=== PATIENT | male | born 1975 | race Caucasian/White ===

== ENCOUNTER 2020-07-13 16:04 | Emergency (ER) | payer OTHER, SELFPAY ==
[2020-07-13 18:04] VITALS: BP 144/89; PULSE 65; RESP 16; TEMP 37.1; O2SAT 98; BMI 36.6
--- NOTE | 2020-07-13 18:51 | ECG_ITS ---
Test Reason : HTN Blood Pressure : / mmHG Vent. Rate : 066 BPM Atrial Rate : 066 BPM P-R Int : 164 ms QRS Dur : 084 ms QT Int : 410 ms P-R-T Axes : 054 020 021 degrees QTc Int : 429 ms Normal sinus rhythm Normal ECG No significant changes seen Referred By: Chana Chan Electronically Signed By:TAHIRA REINOSO MD
--- NOTE | 2020-07-13 18:56 | ED.GENADULT ---
HPI - General Adult General Chief complaint: General Medical Stated complaint: High blood pressure Time Seen by Provider: 07/13/20 18:46 Source: patient Mode of arrival: ambulatory Limitations: no limitations History of Present Illness HPI narrative: Patient comes to emergency room complaining of hypertension. Patient states he has noticed that all week his diastolic pressure has been between 90 and 100, systolic around 140-150. Patient states occasionally he has headache, no chest pain or shortness of breath. Patient home called his primary care physician, he was instructed to come to the emergency room MD complaint: Hypertension Related Data Previous Rx's Medication Instructions Recorded hydrochlorothiazide 25 mg PO DAILY #20 tab 07/13/20 Allergies Allergy/AdvReac Type Severity Reaction Status Date / Time shellfish derived Allergy Unknown Verified 07/13/20 18:09 Review of Systems Review of Systems: Constitutional : No Weight loss, No Fever, No Chills, No Night Sweats, No Fatigue, No Malaise ENT/Mouth : No Hearing loss, No Ear Pain, No Nasal Congestion, No Sinus Pain, No Hoarseness, No sore throat, No Rhinorrhea, No Swallowing Difficulty Eyes: No Eye Pain, No Swelling, No Redness, No Foreign Body, No Discharge, No Vision Changes Cardiovascular : No Chest Pain, No SOB, No Dyspnea on Exertion, No Orthopnea, No Edema, No Palpitations Respiratory : No Cough, No Sputum, No Wheezing, No Smoke Exposure, No Dyspnea Gastrointestinal : No Nausea, No Vomiting, No Diarrhea, No Constipation, No abdominal Pain, No Hematochezia, No Melena Genitourinary : no irregular bleeding, No Dysuria, No Urinary Frequency, No Hematuria, No Urinary Incontinence, No Urgency, No Flank Pain, No Urinary Flow Changes, No Hesitancy Musculoskeletal : No joint pain, No Myalgias, No Joint Swelling Skin : No Skin Lesions, No rash Neuro : No Weakness, No Numbness, No Paresthesias, No Loss of Consciousness, No Dizziness, intermittent Headache, mild headache nearly gone at this time Psych : No Anxiety/Panic, No Depression, No SI/HI/AH/VH, No Social Issues, Heme/Lymph: No Bruising, No Bleeding,No Lymphadenopathy Endocrine : No Polyuria, No Polydipsia, No Temperature Intolerance PMFSH Social History Social History Advance Directives: No Advance Directives Information Provided: Yes Physical Exam Vital Signs: Vital Signs: Last Vital Signs Temp 98.7 F 07/13/20 18:04 Pulse 65 07/13/20 18:04 Resp 16 07/13/20 18:04 BP 144/89 H 07/13/20 18:04 Pulse Ox 98 07/13/20 18:04 Body Mass Index 36.6 Appearance: Alert. Oriented X3. No acute distress. Eyes: Pupils equal, round and reactive to light. ENT: Pharynx normal. Neck: Normal inspection. Neck supple. No lymph nodes noted. No crepitus CVS: Normal heart rate and rhythm. Pulses normal. Normal S1 and S2 Respiratory: No respiratory distress. Breath sounds normal. No Wheezing. No rales Abdomen: Soft and nontender. No rigidity. No distention. good BS x4 Skin: Skin warm and dry. Normal skin color. Normal skin turgor. Extremities: No lower extremity edema. No lower extremity edema. No Lacerations. No Rash Neuro: Oriented X 3. No motor deficit. No sensory deficit. Moving all extermities. No slurred speech. Course Course Course Narrative: Patient is resistant to start taking blood pressure medications, I discussed with the patient that he has had several high blood pressure readings at home, at least 5 readings with high blood pressure. Discussed with the patient to start hydrochlorothiazide, patient agrees with plan, patient will follow-up with his primary care physician on Thursday. Medical Decision Making ECG Data Attestation: I personally reviewed and interpreted this ECG as follows: (Heart rate 66, normal sinus rhythm, QTC 429, no ST segment depressions or elevations, no T-wave inversions) Discharge Plan Discharge Clinical Impression: Hypertension Qualifiers: Hypertension type: essential hypertension Qualified Code(s): I10 - Essential (primary) hypertension Patient Disposition: Home, Self-Care Instructions: Heart Healthy Diet (ED), Hypertension (ED) Prescriptions: New hydrochlorothiazide 25 mg tablet 25 mg PO DAILY Qty: 20 RF: 0
[2020-07-13 20:00] VITALS: BP 145/92; PULSE 70; RESP 17; O2SAT 98
[2020-07-13] MEDS: Acetaminophen 325 MG TABLET 650 MG PO (20:03)
== END 2020-07-13 20:18 | disposition home or self-care (01) ==
PROVIDERS: Emergency Provider Emergency Medicine; PCP Internal Medicine
DX: I10 Essential (primary) hypertension (principal); Z79.899 Other long term (current) drug therapy
CPT/HCPCS: 93005; 99283; 99284

== ENCOUNTER 2020-10-02 22:50 | Emergency (ER) | payer OTHER, SELFPAY ==
--- NOTE | 2020-10-02 | XR_ITS ---
EXAMINATION: LEFT HAND 3 VIEWS CLINICAL INFORMATION: Left hand swelling. COMPARISON: None. TECHNIQUE: PA, lateral, oblique views of the left hand were obtained. FINDINGS: There is an oblique fracture through the midshaft left fourth metacarpal. There is associated soft tissue swelling. XR/XR hand wrist LT IMPRESSION: Left fourth metacarpal fracture with associated soft tissue swelling.
[2020-10-02 23:09] VITALS: PULSE 98; RESP 20; TEMP 38.2; O2SAT 95; BMI 35.2
--- NOTE | 2020-10-02 23:20 | XR_ITS ---
EXAMINATION: XR CHEST CLINICAL INFORMATION: History of asthma. COMPARISON: Chest x-ray 01/18/2019 TECHNIQUE: Frontal view of the chest was obtained. Portable 2338 hours FINDINGS: No significant abnormality is noted involving the heart, lungs, mediastinum, bony thorax or soft tissues. XR/XR chest 1V IMPRESSION: Unremarkable examination.
--- NOTE | 2020-10-02 23:33 | ED_ITS ---
HPI - General Adult General Chief complaint: General Medical Stated complaint: FLU LIKE AND LAC Time Seen by Provider: 10/02/20 23:20 Source: patient Mode of arrival: ambulatory Limitations: no limitations History of Present Illness HPI narrative: 44 y/o male with history of asthma, HTN who is presenting with fevers, headache, and wheezing that started yesterday. He has been having to use his inhaler for wheezing; it has been working. He also complains on left hand pain after he fell down 3 stairs earlier today after tripping while he was running down the stairs to check on his who was yelling at someone outside. The pain is located over mid-lateral aspect of his hand, below the ring and pinky fingers. He is right hand dominant. No other injuries noted. He denies chest pain, nausea, vomiting, abdominal pain, myalgias. No known COVID exposure. He is not up to date on his influeza vaccine. He states he gets an asthma flare about two times per year at the same time each year. MD complaint: hand pain and flu-like symptoms Onset (ago): day(s) (2) Location: chest and left Radiation: non-radiation Severity: moderate Quality: aching Pain Consistency: intermittent Relieving factors: immobilization Exacerbating factors: movement Associated symptoms: fever/chills, headaches, loss of appetite, malaise and shortness of breath Treatments prior to arrival: none Related Data Previous Rx's Medication Instructions Recorded hydrochlorothiazide 25 mg PO DAILY #20 tab 07/13/20 azithromycin [Zithromax Z-Gavino] See Rx Instructions .ROUTE 10/02/20 .COMPLEX #6 tab prednisone 40 mg PO DAILY #10 tab 10/02/20 Allergies Allergy/AdvReac Type Severity Reaction Status Date / Time shellfish derived Allergy Unknown Verified 07/13/20 18:09 Review of Systems Review of Systems: Constitutional: + Fever, No Chills ENT/Mouth: No sore throat, No Rhinorrhea, No Swallowing Difficulty Eyes: No Eye Pain, No Swelling, No Redness Cardiovascular: No Chest Pain, + SOB, No Orthopnea, No Edema Respiratory: No Cough, No Sputum, + Wheezing, No dyspnea Gastrointestinal: No Nausea, No Vomiting, No Diarrhea, No abdominal Pain, No Hematochezia, No Melena Genitourinary: No Dysuria, No Urinary Frequency, No Hematuria Musculoskeletal: + joint pain, No Myalgias Skin: No Skin Lesions, No rash Neuro: No Weakness, No Numbness, No Dizziness, +Headache Psych: No Anxiety/Panic, No Depression Heme/Lymph: No Bruising PMFSH Past Medical History Attestation statement: The following information was validated with the patient. Social History Social History Alcohol intake: never Advance Directives: No Physical Exam Vital Signs: Vital Signs: Last Vital Signs Temp 100.7 F H 10/02/20 23:09 Pulse 97 10/03/20 01:08 Resp 20 10/03/20 01:08 BP 140/91 H 10/03/20 01:08 Pulse Ox 98 10/03/20 01:08 Body Mass Index 35.2 Appearance: Alert. Oriented X3. No acute distress. Eyes: Pupils equal, round and reactive to light. Bilateral scleral injection ENT: Pharynx normal. Neck: Normal inspection. Neck supple. CVS: Normal heart rate and rhythm. Pulses normal. Respiratory: No respiratory distress. Breath sounds normal. Forced end- expiratory wheeze of upper airway, resolves when breathing through the nares. Abdomen: Soft and nontender. +BS x4 Skin: Skin warm and dry. Normal skin color. Normal skin turgor. No rashes. Extremities: left hand with soft tissue swelling aovre 4th/5ht metacarpal, normal ROM of fingers and wrist. NV intact distally with <3 sec cap refill. tenderness over mid - 4th and 5th metacarpal Neuro: Oriented X 3. No motor deficit. No sensory deficit. Course Course Course Narrative: 44 y/o male with history of asthma and HTN presenting with flu-like symptoms as well as left hand pain after a mechanical fall. Temp on arrival 100.7 with normal HR, BP and SpO2. Lungs are clear on arrival. Will get CXR, test for COVID/Flu/RSV and get XR hand to assess for fracture. Reevaluation(s) Reevaluation #1: COVID-19 positive. CXR unremarkable. Ambulatory SpO2 98%. XR hand showing 4th metacarpal fracture. Will place in splint and have him follow up with Ortho/Hand. Patient has been counseled and results reviewed. Stable for discharge. Medical Decision Making Lab Data Labs: Lab Results 10/03/20 Range/Units 00:46 Coronavirus (PCR) POSITIVE A (Negative) Influenza Type A (PCR) NEGATIVE (Negative) Influenza Type B (PCR) NEGATIVE (Negative) RSV RNA Qual (PCR) NEGATIVE (Negative) Critical Care Time Critical Care Time Critical Care Time: No Discharge Plan Discharge Clinical Impression: COVID-19 Fracture, metacarpal Qualifiers: Encounter type: initial encounter Metacarpal bone: fourth Fracture type: closed Metacarpal location: shaft Fracture alignment: nondisplaced Laterality: left Qualified Code(s): S62.355A - Nondisplaced fracture of shaft of fourth metacarpal bone, left hand, initial encounter for closed fracture Patient Disposition: Home, Self-Care Instructions: Asthma (ED), Hand Fracture (ED), COVID-19 (Coronavirus Disease 2019) (ED) Additional Instructions: You were found to be COVID-19 POSITIVE today. Your chest x-ray and oxygen levels were normal. Rest. Drink plenty of fluids. Do not go out in public for the next 14 days. Take over the counter cold/flu medications as needed for your symptoms. Take Tylenol and/or Motrin as needed for fevers and body aches. Follow up with your doctor this week. If you shortness of breath worsens , if you develop difficulty breathing or any other concerning symptom come back to the ER for further evaluation. Take the prescribed medications as directed for your asthma. Continue to use your inhaler as needed for wheezing and shortness of breath. Your hand x-ray showed a fracture of a bone in your hand. Wear the splint that was applied until you follow up with Orthopedic Hand Specialist. Elevate your hand when possible. Take Motrin and/or Tylenol as needed for pain. Prescriptions: New azithromycin [Zithromax Z-Gavino] 250 mg tablet See Rx Instructions .ROUTE .COMPLEX Qty: 6 RF: 0 prednisone 20 mg tablet 40 mg PO DAILY Qty: 10 RF: 0 No Action hydrochlorothiazide 25 mg tablet 25 mg PO DAILY Qty: 20 RF: 0 Referrals: Vivian Cherry MD [Physician] - 3 days (4th metacarpal fracture. )
[2020-10-03] MEDS: Acetaminophen 325 MG TABLET 975 MG PO (01:07)
[2020-10-03 01:08] VITALS: BP 140/91; PULSE 97; RESP 20; O2SAT 98
[2020-10-03 01:30] LABS: Influenza A PCR NEGATIVE (Negative); Influenza B PCR NEGATIVE (Negative); Resp Syncy Virus RNA Qual PCR NEGATIVE (Negative)
[2020-10-03 01:33] LABS: SARS COV2 PCR INHOUSE POSITIVE (Negative)
--- NOTE | 2020-10-03 02:03 | PC.NURSE ---
THIS PCT APPLIED A VOLAR SPLINT TO THE LT ARM PER MD . PT TOLERATED PROCEDURE WELL. ASSESSED SPLINT AFTER APPLICATION.
== END 2020-10-03 02:13 | disposition home or self-care (01) ==
PROVIDERS: Physician Assistant; Emergency Provider Student in an Organized Health Care Education/Training Program
DX: U07.1 COVID-19 (principal); S62.355A Nondisplaced fracture of shaft of fourth metacarpal bone, left hand, initial encounter for closed fracture; W10.8XXA Fall (on) (from) other stairs and steps, initial encounter; J45.909 Unspecified asthma, uncomplicated; I10 Essential (primary) hypertension; Y93.89 Activity, other specified; Y92.018 Other place in single-family (private) house as the place of occurrence of the external cause; Y99.9 Unspecified external cause status; Z79.899 Other long term (current) drug therapy
CPT/HCPCS: 0241U; 29125; 36415; 71045; 73110; 73130; 99284

== ENCOUNTER 2020-10-31 13:02 | Outpatient (REF) | payer OTHER, SELFPAY ==
--- NOTE | ~2020-10-31 | XR_ITS ---
EXAMINATION: XR HAND, LEFT CLINICAL INFORMATION: Fracture COMPARISON: Previous x-ray October 2020 TECHNIQUE: PA, lateral, and oblique views of the left hand. FINDINGS: There is an oblique displaced fracture of the shaft of the fourth metacarpal bone. Alignment is unchanged. There is increasing bony callus formation distally suggestive of some evidence of healing. No other fracture is seen. Joint spaces are normal. Soft tissues are normal. XR/XR hand LT min 3V IMPRESSION: Healing fracture of the fourth metacarpal bone
== END 2020-10-31 13:03 | disposition home or self-care (01) ==
LOC: HO.XRAY 13:02
PROVIDERS: Visit Provider Physician Assistant
DX: S62.325A Displaced fracture of shaft of fourth metacarpal bone, left hand, initial encounter for closed fracture (principal)
CPT/HCPCS: 73130; 99202

== ENCOUNTER 2021-11-19 13:09 | Outpatient (REF) | payer OTHER, SELFPAY ==
--- NOTE | ~2021-11-19 | XR_ITS ---
EXAMINATION: XR TIBIA AND FIBULA, RIGHT CLINICAL INFORMATION: Localized swelling. Mass. Lump left lower limb. Patient fell a pop while walking. History of ORIF tibia. COMPARISON: None TECHNIQUE: AP and lateral views of the right tibia and fibula were obtained. FINDINGS: Intramedullary cesilia present in the tibia which is intact. There is a locking screw in the proximal tibia but not in the distal tibia. Hardware is intact. No radiographic evidence of loosening. Healed fracture with residual deformity of the proximal shaft of the tibia. No acute abnormality. No focal bone lesion or bone destruction. No abnormal periosteal reaction. Knee joint and ankle joint are unremarkable. XR/XR tibia fibula RT 2V IMPRESSION: No acute abnormality. Status post internal fixation with intramedullary cesilia right tibia. Old healed fracture of the proximal shaft of tibia.
== END 2021-11-19 13:10 | disposition home or self-care (01) ==
LOC: HO.XRAY 13:09
PROVIDERS: Absent Provider Internal Medicine; PCP Internal Medicine; Visit Provider Emergency Medicine
DX: R22.42 Localized swelling, mass and lump, left lower limb (principal)
CPT/HCPCS: 73590

== ENCOUNTER 2022-03-31 11:27 | Emergency (ER) | payer OTHER, SELFPAY ==
--- NOTE | ~2022-03-31 | XR_ITS ---
EXAMINATION: XR CHEST CLINICAL INFORMATION: 46-year-old male with cough and fever COMPARISON: 11/18/2018 TECHNIQUE: 2 views of the chest were obtained. FINDINGS: There is normal lung volume. Cardiomediastinal silhouette is normal. Lungs are clear without infiltrates nodules or pleural effusion. Osseous structures unremarkable. XR/XR chest 2V IMPRESSION: No acute abnormalities
--- NOTE | 2022-03-31 11:37 | ECG_ITS ---
Test Reason : CP Blood Pressure : / mmHG Vent. Rate : 072 BPM Atrial Rate : 072 BPM P-R Int : 154 ms QRS Dur : 086 ms QT Int : 386 ms P-R-T Axes : 052 018 024 degrees QTc Int : 422 ms Normal sinus rhythm Normal ECG When compared with ECG of 13-JUL-2020 19:16, No significant change was found Referred By: Generic ED Physician Electronically Signed By:BERNIE MONROE MD
[2022-03-31 11:50] VITALS: BP 129/92; PULSE 81; RESP 18; TEMP 36.6; O2SAT 98; BMI 36.3
[2022-03-31 12:05] LABS: Basophils Percent Auto 0.7 % (0-2); Eosinophils Absolute Auto 0.4 X10*3/uL (0.0-0.4); Eosinophils Percent Auto 6.3 % (0-4); Hematocrit 44.3 % (42.0-52.0); Hemoglobin 15.1 g/dl (14.0-18.0); Imm Gran Abs Auto 0.01 X10*3/uL (0.00-0.03); Imm Gran Pct Auto 0.2 % (0.0-0.4); Lymphocytes Absolute Auto 1.9 X10*3/uL (1.2-4.9); Lymphocytes Percent Auto 33.7 % (20-40); MANUAL DIFF FLAG NO; Mean Corpuscular HGB Conc 34.1 g/dl (31.0-36.0); Mean Corpuscular Hemoglobin 29.4 pg (27.0-33.0); Mean Corpuscular Volume 86.4 fL (80.0-98.0); Mean Platelet Volume 10.1 fL (9.4-12.4); Monocytes Absolute Auto 0.6 X10*3/uL (0.1-1.2); Monocytes Percent Auto 10.3 % (2-11); Neutrophils Absolute Auto 2.7 x10*3/uL (2.0-8.3); Neutrophils Percent Auto 48.8 % (45-73); Platelet Count 216 X10*3/uL (160-400); Red Blood Count 5.13 X10*6/uL (4.60-5.80); Red Cell Distribution Width 12.4 % (11.0-16.0); White Blood Count 5.5 X10*3/uL (4.8-10.8)
[2022-03-31 12:20] LABS: Anion Gap 13 (12-20); Blood Urea Nitrogen 20 mg/dL (9-16); Calcium 9.4 mg/dL (8.4-10.2); Carbon Dioxide 26 mmol/L (22-29); Chloride 103 mmol/L (96-108); Creatinine Clr Calc Pharmacy 117.3; Estimated Glomerular Filt Rate > 60; Glucose Random 99 mg/dL (60-115); Potassium 4.1 mmol/L (3.3-5.1); Sodium 138 mmol/L (135-145)
[2022-03-31 12:25] LABS: Troponin-I High Sensitivity < 3.5 ng/L (<3.5-35.0)
--- NOTE | 2022-03-31 13:47 | ED_ITS ---
HPI - Chest Pain General Chief Complaint: Chest Pain Stated Complaint: chest pain, sob Time Seen by Provider: 03/31/22 13:47 Source: patient Mode of arrival: ambulatory Limitations: no limitations History of Present Illness HPI narrative: 46-year-old male with a history of mild intermittent asthma, hypertension who presents to the ER for evaluation of left-sided chest soreness that started this morning when he was at work. he reports the pain started around 07:00, with last 20 minutes and go away. 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 He denies any heavy lifting or strenuous activity. He reports he thought he had a little bit of an asthma flare this morning but that seemed to have gone away. He currently has no chest pain. When he did have a he describes it as some soreness in his upper left chest, nonradiating. He denied any shortness of breath, nausea, diaphoresis. He had similar soreness last week. He also reports history of similar episode fiber 6 years ago that required an overnight admission at [facility]. He denies any history of a cardiac catheterization. MD complaint: chest discomfort Pertinent past history: asthma Onset (ago): hour(s) (8) Timing of current episode: episodic and now resolved Prior episodes: Yes Onset: during rest Pain location: left chest Pain radiation: none Severity: mild Quality: aching and other (soreness) Relieving factors: nothing Exacerbating factors: nothing Associated symptoms: other ( wheezing) Treatment prior to arrival: none Risk Factors Coronary artery disease risk factors: hypertension Thoracic aortic dissection risk factors: none Related Data Home Medications Medication Instructions Recorded Confirmed albuterol sulfate 90 mcg/actuation 2 puff PO Q4-6H PRN 10/31/20 aerosol inhaler amlodipine 5 mg tablet 5 mg PO DAILY 10/31/20 Previous Rx's Medication Instructions Recorded hydrochlorothiazide 25 mg tablet 25 mg PO DAILY #20 tabs 07/13/20 azithromycin 250 mg tablet See Rx Instructions PO .COMPLEX #6 10/02/20 (Zithromax Z-Gavino) tabs prednisone 20 mg tablet 40 mg PO DAILY #10 tabs 10/02/20 Allergies Allergy/AdvReac Type Severity Reaction Status Date / Time shellfish derived Allergy Unknown Verified 10/31/20 13:13 Review of Systems Review of Systems: Constitutional: No Fever, No Chills ENT/Mouth: No sore throat, No Rhinorrhea, No Swallowing Difficulty Cardiovascular: + Chest Pain, No SOB, No Orthopnea, No Edema Respiratory: No Cough, No Sputum, + Wheezing, No dyspnea Gastrointestinal: No Nausea, No Vomiting, No Diarrhea, No abdominal Pain Genitourinary: No Dysuria, No Urinary Frequency, No Hematuria Musculoskeletal: No joint pain, No Myalgias Skin: No Skin Lesions, No rash Neuro: No Weakness, No Numbness, No Dizziness, No Headache Psych: No Anxiety/Panic, No Depression Heme/Lymph: No Bruising, No Lymphadenopathy COUNT INCLUDES THE [facility] Past Medical History Medical History (Updated 03/31/22 @ 15:11 by TONI Delaney) Asthma Hypertension Social History Social History (Updated 10/31/20 @ 13:33 by Judi Hunt [facility]) Alcohol intake: never Advance Directives: No Advance Directives Information Provided: No Current occupational status: employed 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 Oriented X3. No acute distress. Eyes: Pupils equal, round and reactive to light. ENT: Pharynx normal. Neck: Normal inspection. Neck supple. CVS: Normal heart rate and rhythm. Pulses normal. nontender chest wall. Respiratory: No respiratory distress. Breath sounds normal. Abdomen: Soft and nontender. +BS x4 Skin: Skin warm and dry. Normal skin color. Normal skin turgor. No rashes. Extremities: No lower extremity swelling or edema. No calf tenderness Neuro: Oriented X 3. No motor deficit. No sensory deficit. Course Course Course Narrative: 46-year-old male with history of hypertension and mild intermittent asthma presents to the ER for evaluation of intermittent left chest shortness that was occurring while he was at work today. Has since resolved. clinical presentation is not consistent with typical ACS. EKG is reassuring. Will check his troponin x2, chest x-ray, COVID swab. His lungs are clear, no evidence of asthma exacerbation failure will monitor closely. Reevaluation(s) Reevaluation #1: Troponin is negative x2. His chest x-ray is clear. He is negative for COVID. His lab work is unremarkable. He is pain-free. At this time comfortable with discharge home with outpatient follow-up. MDM - Chest Pain Medical Records Data Attestation: I reviewed the patient's medical records. Lab Data Attestation: I reviewed the patient's lab results. Result diagrams: 03/31/22 12:00 03/31/22 12:00 Labs: Lab Results 03/31/22 03/31/22 03/31/22 Range/Units 12:00 12:00 12:00 WBC 5.5 (4.8-10.8) X10*3/uL RBC 5.13 (4.60-5.80) X10*6/uL Hgb 15.1 (14.0-18.0) g/dl Hct 44.3 (42.0-52.0) % MCV 86.4 (80.0-98.0) fL MCH 29.4 (27.0-33.0) pg MCHC 34.1 (31.0-36.0) g/dl RDW 12.4 (11.0-16.0) % Plt Count 216 (160-400) X10*3/uL MPV 10.1 (9.4-12.4) fL Immature Gran % (Auto) 0.2 (0.0-0.4) % Neut % (Auto) 48.8 (45-73) % Lymph % (Auto) 33.7 (20-40) % Holt % (Auto) 10.3 (2-11) % Eos % (Auto) 6.3 H (0-4) % Baso % (Auto) 0.7 (0-2) % Lymph # (Auto) 1.9 (1.2-4.9) X10*3/uL Holt # (Auto) 0.6 (0.1-1.2) X10*3/uL Eos # (Auto) 0.4 (0.0-0.4) X10*3/uL Baso # (Auto) 0.0 (0.0-0.2) X10*3/uL Abs Immat Gran (auto) 0.01 (0.00-0.03) X10*3/uL Absolute Neuts (auto) 2.7 (2.0-8.3) x10*3/uL Absolute Nucleated RBC 0.000 (0.0-0.012) X10*3/uL Nucleated RBC % (auto) 0.0 (0.0-0.2) /100WBC Sodium 138 (135-145) mmol/L Potassium 4.1 (3.3-5.1) mmol/L Chloride 103 (96-108) mmol/L Carbon Dioxide 26 (22-29) mmol/L Anion Gap 13 (12-20) BUN 20 H (9-16) mg/dL Creatinine 0.88 (0.5-1.4) mg/dL Estim Creat Clear Calc 117.3 Estimated GFR > 60 Random Glucose 99 (60-115) mg/dL Calcium 9.4 (8.4-10.2) mg/dL Troponin I High Sens < 3.5 (<3.5-35.0) ng/L COVID-19 ([facility]) (Negative) COVID-19 Clin Com 03/31/22 03/31/22 Range/Units 14:03 14:33 WBC (4.8-10.8) X10*3/uL RBC (4.60-5.80) X10*6/uL Hgb (14.0-18.0) g/dl Hct (42.0-52.0) % MCV (80.0-98.0) fL MCH (27.0-33.0) pg MCHC (31.0-36.0) g/dl RDW (11.0-16.0) % Plt Count (160-400) X10*3/uL MPV (9.4-12.4) fL Immature Gran % (Auto) (0.0-0.4) % Neut % (Auto) (45-73) % Lymph % (Auto) (20-40) % Holt % (Auto) (2-11) % Eos % (Auto) (0-4) % Baso % (Auto) (0-2) % Lymph # (Auto) (1.2-4.9) X10*3/uL Holt # (Auto) (0.1-1.2) X10*3/uL Eos # (Auto) (0.0-0.4) X10*3/uL Baso # (Auto) (0.0-0.2) X10*3/uL Abs Immat Gran (auto) (0.00-0.03) X10*3/uL Absolute Neuts (auto) (2.0-8.3) x10*3/uL Absolute Nucleated RBC (0.0-0.012) X10*3/uL Nucleated RBC % (auto) (0.0-0.2) /100WBC Sodium (135-145) mmol/L Potassium (3.3-5.1) mmol/L Chloride (96-108) mmol/L Carbon Dioxide (22-29) mmol/L Anion Gap (12-20) BUN (9-16) mg/dL Creatinine (0.5-1.4) mg/dL Estim Creat Clear Calc Estimated GFR Random Glucose (60-115) mg/dL Calcium (8.4-10.2) mg/dL Troponin I High Sens < 3.5 (<3.5-35.0) ng/L COVID-19 ([facility]) Negative (Negative) COVID-19 Clin Com See Note ECG Data ECG #1: ECG interpretation date: 03/31/22 ECG interpretation time: 15:18 Prior ECG tracings: available for review Interpretation: Normal sinus rhythm, ventricular rate 72 beats per minute, normal OH interval, normal QTC, no ST segment elevations or depressions. No change from prior in July 2020 Critical Care Time Critical Care Time Critical Care Time: No Discharge Plan Discharge Clinical Impression: Atypical chest pain Patient Disposition: Home, Self-Care Instructions: Noncardiac Chest Pain (ED) Additional Instructions: Your chest x-ray today was normal. Your COVID test was negative. Your blood work was reassuring. Your cardiac enzyme called troponin was undetectable twice. Your pain is unlikely to be cardiac in nature. If you develop new or worsening symptoms call 911 or come back to the ER for further evaluation. Prescriptions: No Action azithromycin [Zithromax Z-Gavino] 250 mg tablet See Rx Instructions .ROUTE .COMPLEX Qty: 6 0RF Rx Instructions: take 500 mg today (day 1), then 250 mg for 4 days (days 2-5) prednisone 20 mg tablet 40 mg PO DAILY Qty: 10 0RF hydrochlorothiazide 25 mg tablet 25 mg PO DAILY Qty: 20 0RF Referrals: Germán Ribeiro MD [Primary Care Provider] - Interventions: ED Discharge Assessment Last Done: 03/31/22 15:36 Discharge Date/Time: 03/31/22 15:37
[2022-03-31 14:32] LABS: COVID-19 Test Negative (Negative)
[2022-03-31 14:37] VITALS: BP 132/88; PULSE 71; RESP 15; TEMP 36.6; O2SAT 99
[2022-03-31 14:59] LABS: Troponin-I High Sensitivity < 3.5 ng/L (<3.5-35.0)
[2022-03-31 15:26] VITALS: BP 131/84; PULSE 70; RESP 12; TEMP 36.4; O2SAT 99
== END 2022-03-31 15:37 | disposition home or self-care (01) ==
PROVIDERS: Physician Assistant; Emergency Provider Emergency Medicine; PCP Internal Medicine
DX: R07.89 Other chest pain (principal); R06.02 Shortness of breath; I10 Essential (primary) hypertension; J45.909 Unspecified asthma, uncomplicated; Z20.822 Contact with and (suspected) exposure to COVID-19; Z79.899 Other long term (current) drug therapy
CPT/HCPCS: 36415; 71046; 80048; 84484; 85025; 87635; 93005; 99283; 99285

== ENCOUNTER 2022-12-10 09:57 | Emergency (ER) | payer OTHER, SELFPAY ==
--- NOTE | ~2022-12-10 | XR_ITS ---
EXAMINATION: XR CHEST CLINICAL INFORMATION: Chest pain COMPARISON: Previous chest x-ray March 2022 TECHNIQUE: Frontal view of the chest was obtained. FINDINGS: The cardiac and mediastinal contours are stable. The lungs are clear. No pleural effusion or pneumothorax. Mild degenerative changes of the spine. XR/XR chest 1V IMPRESSION: No evidence for acute disease in the chest.
[2022-12-10 10:01] VITALS: BP 127/85; PULSE 74; RESP 18; TEMP 36.8; O2SAT 99; BMI 35.8
--- NOTE | 2022-12-10 10:03 | ECG_ITS ---
Test Reason : chest pain Blood Pressure : / mmHG Vent. Rate : 072 BPM Atrial Rate : 072 BPM P-R Int : 158 ms QRS Dur : 088 ms QT Int : 392 ms P-R-T Axes : 042 015 024 degrees QTc Int : 429 ms Poor data quality, interpretation may be adversely affected Normal sinus rhythm Normal ECG When compared with ECG of 31-MAR-2022 11:51, No significant change was found Referred By: Generic ED Physician Electronically Signed By:BERNIE MONROE MD
--- NOTE | 2022-12-10 10:11 | ED.CHESTPAIN ---
HPI - Chest Pain General Chief Complaint: Chest Pain Stated Complaint: Chest Pain Time Seen by Provider: 12/10/22 10:10 Source: patient Mode of arrival: ambulatory Limitations: no limitations History of Present Illness HPI narrative: 47 yo male with history of HTN, mild intermittent asthma, hx pericarditis who presents to the ER from Urgent Care for evaluation of intermittent nonradiating left sided chest pain that started yesterday at 4pm while he was at work. 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 He states the pain came on gradually. It is described as a soreness in his left chest. He went away last night before bed but came back this morning. Today he noticed some SOB as well. He had no diaphoresis or nausea. The pain did not radiate. He reports the pain went away and he is currently pain free. He has had similar episodes of chest pain in the past where he came to the ER and was r/o ACS. He reports an extensive family history of heart problems and his father recently of an NH. MD complaint: chest pain Pertinent past history: asthma and other (HTN) Onset (ago): day(s) (1) Timing of current episode: episodic Prior episodes: Yes Onset: during rest Pain location: left chest Pain radiation: none Severity: moderate Quality: aching Relieving factors: nothing Exacerbating factors: nothing Associated symptoms: dyspnea Treatment prior to arrival: aspirin Risk Factors Coronary artery disease risk factors: hypertension Related Data Home Medications Medication Instructions Recorded Confirmed albuterol sulfate 90 mcg/actuation 2 puff PO Q4-6H PRN 10/31/20 aerosol inhaler amlodipine 5 mg tablet 5 mg PO DAILY 10/31/20 Previous Rx's Medication Instructions Recorded hydrochlorothiazide 25 mg tablet 25 mg PO DAILY #20 tabs 07/13/20 azithromycin 250 mg tablet See Rx Instructions PO .COMPLEX #6 10/02/20 (Zithromax Z-Gavino) tabs prednisone 20 mg tablet 40 mg PO DAILY #10 tabs 10/02/20 Allergies Allergy/AdvReac Type Severity Reaction Status Date / Time shellfish derived Allergy Unknown Verified 10/31/20 13:13 Review of Systems Review of Systems: Yes all other systems are reviewed and are negative COUNT INCLUDES THE [facility] Past Medical History Medical History (Updated 12/10/22 @ 11:15 by TONI Delaney) Asthma Hypertension Social History Social History (Updated 10/31/20 @ 13:33 by Judi Hunt [facility] Alcohol intake: never Smoked in Last 30 Days: No Use of substances other than those prescribed or required for medical reasons: No Advance Directives: No Current occupational status: employed 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 Oriented X3. No acute distress. Head: normocephalic, atraumatic. Eyes: Pupils equal, round and reactive to light. ENT: Pharynx normal. No tonsillar swelling or exudate. Neck: Normal inspection. Neck supple. CVS: Normal heart rate and rhythm. Pulses normal. Non-tender left chest. Respiratory: No respiratory distress. Breath sounds normal. Abdomen: Soft and nontender. +BS x4 Skin: Skin warm and dry. Normal skin color. Normal skin turgor. No rashes. Extremities: No lower extremity edema. No joint swelling. Neuro/psych: Oriented X 3. No motor deficit. No sensory deficit. CN II-XII intact. Normal speech and cognition. Medical Decision Making Medical Decision Making MDM Narrative: 47-year-old male with history of hypertension, asthma, pericarditis in the past presents to the ER for evaluation of intermittent left-sided chest pain since yesterday, none at present. Has had similar presentations to the ER in the past. His EKG is unremarkable. Troponin <2.7. No current chest pain. No evidence of ACS. No EKG changes to suggest pericarditis. Stable for d/c home with outpatient follow up. Differential Diagnosis Differential Diagnoses: The differential diagnosis associated with the presentation includes ACS, PE, anxiety, costochondritis, pericarditis, myocarditis, pneumonia, asthma Lab Data MDM Lab Attestation statement: I reviewed the patient's lab results. unremarkable. 12/10/22 10:13 12/10/22 10:13 Labs: Lab Results 04/12/23 04/12/23 04/12/23 Range/Units 10:13 10:13 10:13 WBC 6.0 (4.8-10.8) X10*3/uL RBC 5.20 (4.60-5.80) X10*6/uL Hgb 15.1 (14.0-18.0) g/dl Hct 45.0 (42.0-52.0) % MCV 86.5 (80.0-98.0) fL MCH 29.0 (27.0-33.0) pg MCHC 33.6 (31.0-36.0) g/dl RDW 12.6 (11.0-16.0) % Plt Count 209 (160-400) X10*3/uL MPV 9.9 (9.4-12.4) fL Absolute Nucleated RBC 0.000 (0.0-0.012) X10*3/uL Nucleated RBC % (auto) 0.0 (0.0-0.2) /100WBC Sodium 140 (135-145) mmol/L Potassium 4.2 (3.3-5.1) mmol/L Chloride 104 (96-108) mmol/L Carbon Dioxide 30 H (22-29) mmol/L Anion Gap 10 L (12-20) BUN 12 (9-16) mg/dL Creatinine 0.95 (0.5-1.4) mg/dL Estim Creat Clear Calc 106.8 Estimated GFR > 60 Random Glucose 97 (60-115) mg/dL Calcium 9.2 (8.4-10.2) mg/dL Troponin I High Sens < 2.7 (<3.5-35.0) ng/L Independent Interpretation I performed an independent interpretation of an: EKG and Plain X-Ray Interpretation: EKG - normal sinus rhythm, HR 72 bpm, normal [place] interval, no ST segment elevations or depressions. CXR clear lungs, no PNA, no PTX Radiology Impression Discussion of test interpretation with radiology: I have reviewed the radiologist's reading. Radiologist Impression: XR/XR chest 1V IMPRESSION: No evidence for acute disease in the chest. External Record Review External record reviewed: Outpatient record, Prior outpatient labs and Prior outpatient radiology Chronic Conditions Patient?s care impacted by: Hypertension Critical Care Time Critical Care Time Critical Care Time: No Discharge Plan Discharge Clinical Impression: Atypical chest pain Patient Disposition: Home, Self-Care Instructions: Noncardiac Chest Pain (ED) Additional Instructions: Your EKG and lab workup today were normal. No evidence of strain on your heart. Recommend following up with your primary care doctor. Rest. Recommend Tylenol and Motrin as needed for intermittent chest pains. If you develop new or worsening symptoms call 911 or come back to the ER for further evaluation. Prescriptions: No Action azithromycin [Zithromax Z-Gavino] 250 mg tablet See Rx Instructions .ROUTE .COMPLEX Qty: 6 0RF Rx Instructions: take 500 mg today (day 1), then 250 mg for 4 days (days 2-5) prednisone 20 mg tablet 40 mg PO DAILY Qty: 10 0RF hydrochlorothiazide 25 mg tablet 25 mg PO DAILY Qty: 20 0RF
[2022-12-10 10:18] LABS: Hemoglobin 15.1 g/dl (14.0-18.0); Mean Corpuscular HGB Conc 33.6 g/dl (31.0-36.0); Mean Corpuscular Volume 86.5 fL (80.0-98.0); Mean Platelet Volume 9.9 fL (9.4-12.4); Platelet Count 209 X10*3/uL (160-400); Red Cell Distribution Width 12.6 % (11.0-16.0)
[2022-12-10 10:26] VITALS: BP 126/78; PULSE 71; RESP 18; TEMP 37; O2SAT 98
--- NOTE | 2022-12-10 10:28 | PC.NURSE ---
Pt arrived ambulatory, complaints of chest pain starting yesterday at 4pm at work. Denies CP this morning, but reports SOB this morning when he woke up. Provider at bedside
[2022-12-10 10:32] LABS: Anion Gap 10 (12-20); Blood Urea Nitrogen 12 mg/dL (9-16); Calcium 9.2 mg/dL (8.4-10.2); Carbon Dioxide 30 mmol/L (22-29); Chloride 104 mmol/L (96-108); Creatinine Clr Calc Pharmacy 106.8; Estimated Glomerular Filt Rate > 60; Glucose Random 97 mg/dL (60-115); Potassium 4.2 mmol/L (3.3-5.1); Sodium 140 mmol/L (135-145)
[2022-12-10 10:42] LABS: Troponin-I High Sensitivity < 2.7 ng/L (<3.5-35.0)
[2022-12-10 12:09] VITALS: BP 120/70; PULSE 70; RESP 16
== END 2022-12-10 12:11 | disposition home or self-care (01) ==
PROVIDERS: Emergency Provider Emergency Medicine; PCP Internal Medicine
DX: R07.89 Other chest pain (principal); I10 Essential (primary) hypertension; J45.909 Unspecified asthma, uncomplicated; I31.9 Disease of pericardium, unspecified
CPT/HCPCS: 36415; 71045; 80048; 84484; 85027; 93005; 99283; 99285

== ENCOUNTER → 2023-02-25 09:06 | Outpatient (BNVA) | payer OTHER, SELFPAY | PROVIDERS: PCP Internal Medicine; Referring Provider Internal Medicine; Visit Provider Internal Medicine | DX: R07.2 Precordial pain (principal); I10 Essential (primary) hypertension; E66.3 Overweight; Z68.35 Body mass index [BMI] 35.0-35.9, adult | CPT/HCPCS: 99202 ==

== ENCOUNTER → 2023-03-27 09:42 | Outpatient (REF) | payer OTHER, SELFPAY ==
--- NOTE | 2023-03-27 09:44 | CA_ITS ---
Transthoracic Echocardiogram Patient (Last, First, Middle): Abilio Hou, Gender: Male Date of : 1975 Age: 47 Procedure Date: 03/27/2023 Procedure Type: Transthoracic Echocardiogram Location: OP Height: 167.64 cm Weight: 101.61 kg BSA: 2.10 m2 Heart Rate: 64 bpm BP: 130 / 90 mmHg V Belt Curer: HILDA Coles MD: Chito Lima MD Playground Official: Molina Do MD Symptoms: R07.2 - Precordial pain Study Quality: Fair ECG Rhythm: Sinus Conclusions: - Essentially normal study Findings Left Ventricle Normal left ventricular size, thickness, and systolic function. The visually estimated ejection fraction is between 55-60%. Spectral Doppler is indicative of a normal filling pattern. Right Ventricle Normal right ventricular cavity size and systolic function. Atria Both atria are normal in size. There is no evidence of interatrial shunt. Aortic Valve Normal aortic valve structure and function. There is no aortic valve stenosis. There is no aortic valve regurgitation. Mitral Valve Normal mitral valve structure and function. There is trace mitral valve regurgitation. There is no mitral valve stenosis. Pulmonic Valve The pulmonic valve is likely normal. Tricuspid Valve Normal tricuspid valve structure. Tricuspid regurgitation envelope is inadequate for calculation of right ventricular systolic pressure. Normal right atrial pressure. Great Vessels All visible segments of the aorta are normal in size. The pulmonary artery was not well visualized. Venous The inferior vena cava is normal in size and collapses greater than 50% with inspiration. Pericardium/Pleural There is no evidence of pericardial effusion. Prior Study Comparison No prior study available for comparison. Measurements 2D Linear Measurements IVSd: 1.20 0.6-0.9/0.6-1.0 cm LVIDd: 5.30 3.9-5.3/4.2-5.9 cm LVIDd Index: 2.52 2.4-3.2/2.2-3.1 cm/m2 LVIDs: 3.60 2.0-3.6 cm LVPWd: 1.10 0.7-1.1 cm LA Diam: 3.70 2.7-3.8/3.0-4.0 cm LAIDs Index: 1.76 1.5-2.3 cm/m2 LV Mass: 301.70 67-162/88-224 g LV Mass Index: 143.67 43-95/49-115 g/m2 LVOT Diam: 2.00 3.0+(-)1.3 cm 2D Systolic Function EF 4C: 51.20 >55% EF 2C: 59.20 >55% EF BiP: 54.50 >55% Mitral Valve MV Pk E: 0.62 MV PK A: 0.54 MV Decel Time: 178.00 E/A: 1.10 E'Lateral: 11.90 E'Medial: 9.79 E/E' Med: 6.30 E/E' Lat: 5.20 PHT: 52.00 MVA PHT: 4.23 Decel Mineral: 3.46 Aortic Valve AoV Pk Spencer: 1.10 AoV Mn Spencer: 0.81 AoV VTI: 0.25 AoV Pk Grad: 5.00 Aov Mn Grad: 3.00 UTE Cont.VTI: 2.40 LVOT LVOT Pk Spencer: 0.91 LVOT Mn Spencer: 0.65 LVOT VTI: 0.19 LVOT Pk Grad: 3.00 LVOT Mn Grad: 2.00 LVOT Diam: 2.00 LVOT Area: 3.14 Diastolic Function MV Pk E: 0.62 MV Pk A: 0.54 E/A: 1.10 E'Medial: 9.79 E/E' Med: 6.30 E' Laterial: 11.90 E/E' Lat: 5.20 Right Ventricle TAPSE (mm): 24.30 TVS' Spencer: 10.60 Tricuspid Valve RA Press: 3.00 Great Vessels Aorta Sinus of Valsalva: 3.70 2.0-3.5 cm Ao Asc: 3.30 2.1-3.4 cm Pulmonary Valve PV Pk Spencer: 1.14 Peak PV Grad: 5.00 Updated in Other Vendor System with Status of Final Molina Do MD electronically signed on 03/27/2023 2:04:04 PM with status of Final
== END ==
LOC: HO.CARD 09:42
PROVIDERS: PCP Internal Medicine; Visit Provider Internal Medicine
DX: R07.2 Precordial pain (principal)
CPT/HCPCS: 93306

== ENCOUNTER → 2023-03-27 09:44 | Outpatient (BNV) | payer OTHER, SELFPAY | PROVIDERS: PCP Internal Medicine; Visit Provider Internal Medicine Cardiovascular Disease | DX: R07.2 Precordial pain (principal) | CPT/HCPCS: 93306 ==

== ENCOUNTER → 2023-04-02 11:07 | Outpatient (REF) | payer OTHER, SELFPAY ==
--- NOTE | 2023-04-02 11:11 | CA_ITS ---
Acquisition Time: 2023-04-02 11:41:29 Total Exercise Time: 00:11:01 Test Indications: Chest Pain Medications: Protocol: CARMELO Max HR: 160 BPM 92% of Pred: 173 BPM Max BP: 168/088 mmHG Max Work Load: 13.4 METS Exercise stress test with exercise 11 min 1 sec of Carmelo protocol achieving 89% MPHR, with mild SOB, without chest discomfort, with isolated PVCs, without EKG changes seen through artifact. Echo images obtained by technical artist at rest and immediately post peak exercise. Definity contrast used. Test reviewed with Dr. Lima. Referred By: Chito Lima Overread By: Ana Pedraza
== END ==
LOC: HO.CARD 11:07
PROVIDERS: PCP Internal Medicine; Visit Provider Internal Medicine
DX: R07.2 Precordial pain (principal)
CPT/HCPCS: 93350; Q9957

== ENCOUNTER → 2023-04-02 11:11 | Outpatient (BNV) | payer OTHER, SELFPAY | PROVIDERS: PCP Internal Medicine; Visit Provider Nurse Practitioner | DX: R06.02 Shortness of breath (principal) | CPT/HCPCS: 93016; 93018; 93350; 93352 ==

== ENCOUNTER 2023-09-30 10:45 | Emergency (ER) | payer OTHER, SELFPAY ==
--- NOTE | ~2023-09-30 | XR_ITS ---
EXAMINATION: XR CHEST CLINICAL INFORMATION: Chest pain. COMPARISON: 12/10/2022 TECHNIQUE: Frontal view of the chest was obtained. FINDINGS: The lungs are moderately expanded. No focal consolidation. No pleural effusion. Cardiac silhouette is unchanged. XR/XR chest 1V IMPRESSION: No acute abnormality.
--- NOTE | 2023-09-30 10:47 | ECG_ITS ---
Test Reason : CP Blood Pressure : / mmHG Vent. Rate : 081 BPM Atrial Rate : 081 BPM P-R Int : 150 ms QRS Dur : 086 ms QT Int : 374 ms P-R-T Axes : 053 029 026 degrees QTc Int : 434 ms Normal sinus rhythm Normal ECG When compared with ECG of 10-DEC-2022 10:05, No significant change was found Referred By: Generic ED Physician Electronically Signed By:BERNIE MONROE MD
[2023-09-30 10:51] VITALS: BP 124/82; PULSE 78; RESP 18; TEMP 36.6; O2SAT 95; BMI 36.0
--- NOTE | 2023-09-30 11:01 | ED.CHESTPAIN ---
HPI - Chest Pain General Chief Complaint: Chest Pain Stated Complaint: Chest Pain Time Seen by Provider: 09/30/23 10:58 Source: patient Mode of arrival: ambulatory Limitations: no limitations History of Present Illness HPI narrative: Patient is a 47 year old assigned male at with a history of HTN presenting to the emergency department today with chest pain. Patient states that he has had this multipe times before and has seen a foreign food specialty cook for it but hasn't gotten an answer. Patient states that he has chest pain on the center of his chest that does not radiate. Patient denies any dizziness, lightheadedness, abdominal pain, nausea, vomiting, fever, chills, blurry vision, double vision, loss of vision, difficulty breathing, shortness of breath, back pain, night sweats, pain with urination, increased urinary frequency, increased urinary urgency, blood in his urine or stool, syncope or a near syncopal episode, recent trauma or falls, bowel incontinence, bladder incontinence, bowel retention, bladder retention, or any other complaints at this time. MD complaint: chest pain Related Data Home Medications Medication Instructions Recorded Confirmed albuterol sulfate 90 mcg/actuation 2 puff PO Q4-6H PRN 10/31/20 02/25/23 aerosol inhaler amlodipine 5 mg tablet 5 mg PO DAILY 10/31/20 02/25/23 Allergies Allergy/AdvReac Type Severity Reaction Status Date / Time shellfish derived Allergy Unknown Verified 02/25/23 09:19 Review of Systems Constitutional: Constitutional: Reports no additional constitutional complaints, Denies chills, Denies fever(s) and Denies night sweats Eyes: Eyes: Reports no additional eye complaints, Denies blurry vision, Denies change in vision, Denies diplopia, Denies eye discharge, Denies loss of vision and Denies eye pain ENT: Denies dizziness Cardiovascular: Cardiovascular: Reports no additional cardiovascular complaints, Reports chest pain, Denies lightheadedness, Denies Loss of Consciousness and Denies dyspnea Respiratory: Respiratory: Reports no additional respiratory complaints and Denies dyspnea Gastrointestinal: Gastrointestinal: Reports no additional gastrointestinal complaints, Denies abdominal pain, Denies melena, Denies hematochezia, Denies change in bowel habits and Denies change in stool character Genitourinary: Genitourinary: Reports no additional male genitourinary complaints, Denies hematuria, Denies oliguria, Denies difficulty urinating, Denies dysuria, Denies urinary frequency, Denies urinary hesitancy, Denies urinary incontinence and Denies urinary urgency Musculoskeletal: Musculoskeletal: Reports no additional musculoskeletal complaints, Denies numbness and Denies tingling Neurologic: Denies dizziness, Denies loss of vision, Denies numbness and Denies tingling Psychiatric: Psychiatric: Reports no additional psychiatric complaints Endocrine: Endocrine: Reports no additional endocrine complaints Hematologic/Lymphatic: Hematologic/Lymphatic: Reports no additional hematologic/lymphatic complaints Allergic/Immunologic: Allergic/Immunologic: Reports no additional allergic/immunologic complaints [facility] Past Medical History Attestation statement: The following information was validated with the patient. 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 Vital Signs: Vital Signs: Last Vital Signs Temp 98 F 09/30/23 10:51 Pulse 78 09/30/23 10:51 Resp 18 09/30/23 10:51 BP 124/82 09/30/23 10:51 Pulse Ox 95 09/30/23 10:51 O2 Del Method Room Air 09/30/23 10:51 BMI result Body Mass Index 36.0 Const: General: cooperative, no acute distress, alert and awake Nutritional Appearance: well nourished Orientation/consciousness: patient oriented x3 Limitations: no limitations HEENT: Head: Yes normal to inspection and Yes atraumatic Ears: hearing grossly normal bilaterally and external ears normal General nose exam: Normal external nose present, no nasal discharge noted and no epistaxis Face and sinus: Yes normal facial exam, No abrasion and No laceration Mouth: Normal oral and palatal mucosa present, no drooling and no muffled voice Eyes: General: appearance normal, both eyes and all related structures Periorbital: periorbital findings normal Eyelids: Yes eyelids normal Conjunctivae: conjunctivae normal Pupils: Equal, round and reactive pupils present EOM: EOMs intact bilaterally Neck: Neck: Yes normal visual inspection, Yes full ROM and Yes no lymphadenopathy Chest: Chest palpation & inspection: normal inspection of the chest Resp: Effort & Inspection: normal respiratory effort and able to speak in complete sentences Auscultation: clear to auscultation bilaterally Cardio: Rate: regular rate Rhythm: regular rhythm GI: Inspection: Yes normal to inspection Neuro: General: patient oriented x3 and moves all extremities Cranial nerves: Yes Equal, round and reactive pupils present Cognition (Neuro): normal cognition Motor exam (neuro): 5/5 motor strength present throughout Sensory Exam: Normal double simultaneous stimulation for sensation Coordination: [id number] test normal Extrem: General: Yes normal to inspection, Yes full ROM and Yes capillary refill normal Psych: Appearance: grossly normal Mental Status: mental status grossly normal Affect: normal affect Attitude: cooperative Thought process: Normal thought process present Thought content: Normal thought content present Insight: Good insight present (Psych) Medications Administered Discontinued Medications Generic Name Dose Route Start Last Admin Trade Name Freq PRN Reason Stop Dose Admin Ketorolac Tromethamine 15 mg 09/30/23 11:39 09/30/23 11:43 Ketorolac Tromethamine 15 Mg/Ml Vial IM 09/30/23 11:40 15 mg ONCE ONE Administration Medical Decision Making Medical Decision Making [facility] Narrative: Patient is a 47 year old assigned male at with a history of HTN presenting to the emergency department today with chest pain. Patient's physical exam was unremarkable. Patient's blood work was unremarkable. Patient's EKG was unremarkable. Patient's chest x-ray showed no acute process. I explained my physical exam findings as well as all test results to the patient. I answered all questions asked by the patient. I stressed the importance of the patient taking his medication as prescribed. I stressed the importance of the patient following up with his primary care provider and foreign food specialty cook. I stressed the importance of the patient returning to the emergency department immediately if his symptoms were to worsen or if he were to develop any dizziness, shortness of breath, difficulty breathing, chest pain, blurry vision, loss of vision, nausea, vomiting, abdominal pain, fever, chills, back pain, or any other complaints. Patient verbalized agreement and understanding with this treatment plan and discharge. Differential Diagnosis Differential Diagnoses: The differential diagnosis associated with the presentation includes Chest pain NSTEMI STEMI Costochondritis Chest wall pain GERD Admission/Observation Consideration of admission/observation: Escalation of care including admission/observation considered Patient would have been admitted to the hospital had his work up had any findings where hospital admission was appropriate and his clinical presentation warranted hospital admission. Lab Data [facility] Lab Attestation statement: I reviewed the patient's lab results. My interpretation of these results are in the [facility] Rationale portion of this note. 09/30/23 11:05 09/30/23 11:05 Labs: Lab Results 09/30/23 Range/Units 11:05 WBC 6.6 (4.8-10.8) X10*3/uL RBC 5.05 (4.60-5.80) X10*6/uL Hgb 14.9 (14.0-18.0) g/dl Hct 43.6 (42.0-52.0) % MCV 86.3 (80.0-98.0) fL MCH 29.5 (27.0-33.0) pg MCHC 34.2 (31.0-36.0) g/dl RDW 12.4 (11.0-16.0) % Plt Count 235 (160-400) X10*3/uL MPV 10.2 (9.4-12.4) fL Immature Gran % (Auto) 0.2 (0.0-0.4) % Neut % (Auto) 52.0 (45-73) % Lymph % (Auto) 29.1 (20-40) % [place] % (Auto) 9.7 (2-11) % Eos % (Auto) 8.2 H (0-4) % Baso % (Auto) 0.8 (0-2) % Lymph # (Auto) 1.9 (1.2-4.9) X10*3/uL [place] # (Auto) 0.6 (0.1-1.2) X10*3/uL Eos # (Auto) 0.5 H (0.0-0.4) X10*3/uL Baso # (Auto) 0.1 (0.0-0.2) X10*3/uL Abs Immat Gran (auto) 0.01 (0.00-0.03) X10*3/uL Absolute Neuts (auto) 3.4 (2.0-8.3) x10*3/uL Absolute Nucleated RBC 0.000 (0.0-0.012) X10*3/uL Nucleated RBC % (auto) 0.0 (0.0-0.2) /100WBC Sodium 141 (135-145) mmol/L Potassium 3.9 (3.3-5.1) mmol/L Chloride 106 (96-108) mmol/L Carbon Dioxide 28 (22-29) mmol/L Anion Gap 11 L (12-20) BUN 11 (9-16) mg/dL Creatinine 0.89 (0.5-1.4) mg/dL Estim Creat Clear Calc 114.2 Estimated GFR > 60 Random Glucose 86 (60-115) mg/dL Calcium 9.5 (8.4-10.2) mg/dL Troponin I High Sens < 2.7 (<3.5-35.0) ng/L Independent Interpretation I performed an independent interpretation of an: EKG and Plain X-Ray Interpretation: My interpretation is in agreement with the radiologist's impression of this imaging study. EXAMINATION: XR CHEST CLINICAL INFORMATION: Chest pain. COMPARISON: 12/10/2022 TECHNIQUE: Frontal view of the chest was obtained. FINDINGS: The lungs are moderately expanded. No focal consolidation. No pleural effusion. Cardiac silhouette is unchanged. XR/XR chest 1V IMPRESSION: No acute abnormality. Dictated By: Ofelia Mayer MD Signed By: Electronically signed by Ofelia Mayer MD 09/30/23 1122 Vent. Rate: 081 BPM Atrial Rate: 081 BPM P-R Int: 150 ms QRS Dur: 086 ms QT Int: 374 ms P-R-T Axes: 053 029 026 degrees QTc Int: 434 ms Normal sinus rhythm Normal ECG When compared with ECG of 10-DEC-2022 10:05, No significant change was found [id number]/ [id number] Radiology Impression Discussion of test interpretation with radiology: I have reviewed the radiologist's reading. Discharge Plan Discharge Clinical Impression: Atypical chest pain Patient Disposition: Home, Self-Care Instructions: Chest Pain (DC) Additional Instructions: Follow up with your primary care provider and your foreign food specialty cook. Return to the emergency department immediately if your symptoms worsen or if you develop any dizziness, shortness of breath, difficulty breathing, chest pain, blurry vision, loss of vision, nausea, vomiting, abdominal pain, fever, chills, back pain, or any other complaints. Prescriptions: No Action amlodipine 5 mg tablet 5 mg PO DAILY albuterol sulfate 90 mcg/actuation HFA aerosol inhaler 2 puff PO Q4-6H PRN Referrals: Germán Ribeiro MD [Primary Care Provider] - Discharge Date/Time: 09/30/23 11:47 Print Language: Senegalese
[2023-09-30 11:11] LABS: MANUAL DIFF FLAG NO
[2023-09-30 11:12] LABS: Basophils Absolute Auto 0.1 X10*3/uL (0.0-0.2); Basophils Percent Auto 0.8 % (0-2); Eosinophils Absolute Auto 0.5 X10*3/uL (0.0-0.4); Eosinophils Percent Auto 8.2 % (0-4); Hematocrit 43.6 % (42.0-52.0); Hemoglobin 14.9 g/dl (14.0-18.0); Imm Gran Abs Auto 0.01 X10*3/uL (0.00-0.03); Imm Gran Pct Auto 0.2 % (0.0-0.4); Lymphocytes Absolute Auto 1.9 X10*3/uL (1.2-4.9); Lymphocytes Percent Auto 29.1 % (20-40); Mean Corpuscular HGB Conc 34.2 g/dl (31.0-36.0); Mean Corpuscular Hemoglobin 29.5 pg (27.0-33.0); Mean Corpuscular Volume 86.3 fL (80.0-98.0); Mean Platelet Volume 10.2 fL (9.4-12.4); Monocytes Absolute Auto 0.6 X10*3/uL (0.1-1.2); Monocytes Percent Auto 9.7 % (2-11); Neutrophils Absolute Auto 3.4 x10*3/uL (2.0-8.3); Platelet Count 235 X10*3/uL (160-400); Red Blood Count 5.05 X10*6/uL (4.60-5.80); Red Cell Distribution Width 12.4 % (11.0-16.0); White Blood Count 6.6 X10*3/uL (4.8-10.8)
[2023-09-30 11:26] LABS: Anion Gap 11 (12-20); Blood Urea Nitrogen 11 mg/dL (9-16); Calcium 9.5 mg/dL (8.4-10.2); Carbon Dioxide 28 mmol/L (22-29); Chloride 106 mmol/L (96-108); Creatinine Clr Calc Pharmacy 114.2; Estimated Glomerular Filt Rate > 60; Glucose Random 86 mg/dL (60-115); Potassium 3.9 mmol/L (3.3-5.1); Sodium 141 mmol/L (135-145)
[2023-09-30 11:37] LABS: Troponin-I High Sensitivity < 2.7 ng/L (<3.5-35.0)
[2023-09-30] MEDS: Ketorolac Tromethamine 15 MG/ML VIAL IM (11:43)
== END 2023-09-30 11:47 | disposition home or self-care (01) ==
PROVIDERS: Emergency Provider Emergency Medicine Emergency Medical Services; PCP Internal Medicine
DX: R07.89 Other chest pain (principal); I10 Essential (primary) hypertension; Z79.899 Other long term (current) drug therapy
CPT/HCPCS: 36415; 71045; 80048; 84484; 85025; 93005; 96372; 99283; 99284; J1885

== ENCOUNTER → 2023-09-30 10:47 | Outpatient (BNV) | payer OTHER, SELFPAY | PROVIDERS: Emergency Provider Emergency Medicine Emergency Medical Services; PCP Internal Medicine; Visit Provider Internal Medicine Cardiovascular Disease | DX: R07.9 Chest pain, unspecified (principal) | CPT/HCPCS: 93010 ==

== ENCOUNTER 2024-07-13 10:22 | Outpatient (REF) | payer SELFPAY ==
[2024-07-13 13:56] LABS: Alanine Aminotransferase 43 U/L (0-40); Alkaline Phosphatase 53 U/L (39-117); Anion Gap 11 (12-20); Aspartate Amino Transferase 33 U/L (5-37); Bilirubin Total 0.7 mg/dL (0.0-1.0); Blood Urea Nitrogen 17 mg/dL (9-16); Calcium 9.6 mg/dL (8.4-10.2); Carbon Dioxide 29 mmol/L (22-29); Chloride 105 mmol/L (96-108); Cholesterol 198 mg/dL (<200); Estimated Glomerular Filt Rate > 60; Glucose Random 89 mg/dL (60-115); HDL Cholesterol 35 mg/dL (>40); LDL Cholesterol Calculated 146 mg/dL (<100); Potassium 4.1 mmol/L (3.3-5.1); Sodium 141 mmol/L (135-145); Total Protein 7.4 g/dL (6.5-8.0); Triglycerides 85 mg/dL (<150)
== END 2024-07-13 10:23 | disposition home or self-care (01) ==
LOC: HO.HHCL 10:22
PROVIDERS: Visit Provider Internal Medicine
DX: I10 Essential (primary) hypertension (principal)
CPT/HCPCS: 36415; 80053; 80061

== ENCOUNTER 2025-02-02 11:38 | Outpatient (REF) | payer SELFPAY ==
[2025-02-02 13:46] LABS: MANUAL DIFF FLAG NO
[2025-02-02 13:48] LABS: Basophils Percent Auto 0.8 % (0-2); Eosinophils Absolute Auto 0.2 X10*3/uL (0.0-0.4); Eosinophils Percent Auto 4.3 % (0-4); Hematocrit 42.2 % (42.0-52.0); Hemoglobin 14.5 g/dl (14.0-18.0); Imm Gran Abs Auto 0.01 X10*3/uL (0.00-0.03); Imm Gran Pct Auto 0.2 % (0.0-0.4); Lymphocytes Absolute Auto 1.9 X10*3/uL (1.2-4.9); Lymphocytes Percent Auto 38.3 % (20-40); Mean Corpuscular HGB Conc 34.4 g/dl (31.0-36.0); Mean Corpuscular Hemoglobin 29.8 pg (27.0-33.0); Mean Corpuscular Volume 86.7 fL (80.0-98.0); Mean Platelet Volume 11.3 fL (9.4-12.4); Monocytes Absolute Auto 0.6 X10*3/uL (0.1-1.2); Monocytes Percent Auto 11.4 % (2-11); Neutrophils Absolute Auto 2.3 x10*3/uL (2.0-8.3); Platelet Count 202 X10*3/uL (160-400); Red Blood Count 4.87 X10*6/uL (4.60-5.80); Red Cell Distribution Width 12.4 % (11.0-16.0); White Blood Count 5.1 X10*3/uL (4.8-10.8)
[2025-02-02 13:52] LABS: Prothrombin Time 11.3 SEC (10.9-12.4)
--- OUTSIDE RECORDS SUMMARY | 2025-02-02 13:52 | XMS_ITS | Clinical Summary ---
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 Name Role Phone Germán Menendez MD Primary Care Provide r Allergies Active Allergy Reactions Criticality Noted Date Comments Shellfish Allergy Hives 02/02/2025 Medications albuterol (5 MG/ML) 0.5% nebulizer solution 10/16/19 21 Active albuterol 108 (90 Base) MCG/ACT inhaler 10/12/19 21 Active hydrocortisone 1 % cream 05/09/20 21 Active valACYclovir (Valtrex) 500 MG tablet 03/26/20 22 Active diphenhydrAMIN E (BENADryl) 25 MG capsule TAKE 1-2 CAPSULES AT BEDTIME IF NEEDED FOR ITCHING 30 capsule 2 12/26/19 23 Active Enalapril-hydr oCHLOROthiazid e 5-12.5 MG tablet TAKE 2 TABLETS BY MOUTH ONCE DAILY IN THE MORNING 180 tablet 1 10/04/19 25 Active hydrocortisone (Proctosol HC) 2.5 % rectal creamIndicatio ns:BRBPR (bright red blood per rectum) Insert into the rectum 2 times daily. 28 g 02/03/20 25 Active docusate sodium (Colace) 100 MG capsuleIndicat ions:Symptom of blood in stool Take 1 capsule (100 mg) by mouth 2 times daily. 60 capsule 02/03/20 25 025 Active fexofenadine (Albina) 180 MG tabletIndicati ons:Seasonal allergies Take 1 tablet (180 mg) by mouth if needed each day (Allergies). 30 tablet 2 02/03/20 25 Active loratadine (Claritin) 10 MG tablet TAKE 1 TABLET BY MOUTH DAILY 90 tablet 1 04/29/20 23 025 Discontinued(Th erapy completed) docusate sodium (Colace) 100 MG capsuleIndicat ions:Symptom of blood in stool Take 1 capsule (100 mg) by mouth 2 times daily. 60 capsule 01/19/20 25 025 Discontinued(Re order (will not trigger notification to Pharmacy)) Active Problems Problem Noted Date Diagnosed Date BRBPR (bright red blood per rectum) 02/02/2025 Assessment & Plan (02/02/2025 11:23 AM EDT): Seen at our [facility]. Rx for presumptive Hemorrhoids and referred to GI. Unfortunately patient does not have insurance, although he is eligible for [facility] but has yet to sign up. Today I gave him all the information to meet with our senior telecommunications specialist, once enrolled will refer back to GI Pt did not have the CBC ordered by our [facility] provider, ordered again today 4 week follow up with me Refilled his Rx for proctosol and Colace Routine physical examination 06/28/2024 Assessment & Plan (06/28/2024 11:16 AM EDT): Patient here for a routine physical examination, exam today within normal limits aside from elevated diastolic blood pressure. Rest of exam normal Chest pain 12/25/2022 Assessment & Plan (06/28/2024 11:15 AM EDT): Resolved Denies having any chest pain whatsoever Pt had previously c/o intermittent left sided chest pain, seen here at our [facility], sent to the ER work up in the ER was unrevealing with negative Troponin. Previous EKG was Normal Patient was referred to Cardiology for outpatient stress testing, but he never went. Today he tells me he has not had any chest pain whatsoever and would like to hold off on any evaluation. Assessment & Plan (12/25/2022 9:55 AM EDT): Pt here with c/o intermittent left sided chest pain, seen here at [facility] 2 weeks ago, sent to the ER work up in the ER was unrevealing with negative Troponin. Pt continues to c/o intermitent left sided chest discomfort that last from a few minutes to sometimes hours. Not associated symptoms EKG today: Normal Plan: Cardiology consult given sex, age and risk factors for outpatient stress testing Essential hypertension 09/26/2022 Assessment & Plan (02/02/2025 11:17 AM EDT): Pt is here for a f/u visit, BP controlled He is supposed to be on d Hctz/lisinopril 25/10 1 tab po daily. Most recent electrolytes, Bun and Creatinine done on: Lab Results Component Value Date NA 141 07/13/2024 NA 141 09/30/2023 K 4.1 07/13/2024 K 3.9 09/30/2023 CL 105 07/13/2024 CL 106 09/30/2023 BUN 17 (H) 07/13/2024 BUN 11 09/30/2023 CREATININE 0.80 07/13/2024 CREATININE 0.89 09/30/2023 were within normal limits. Plan: Continue current regimen, repeat BMP patient advised to adhere to a low sodium diet, encouraged about medication compliance, counseled about weight loss. f/u 4 months Assessment & Plan (06/28/2024 11:14 AM EDT): Pt is here for a f/u visit, BP elevated, patient admits he has not been taking his medication. He is supposed to be on d Hctz/lisinopril 25/10 1 tab po daily. Most recent electrolytes, Bun and Creatinine done on: 09/20/2023 were within normal limits. Plan: Continue current regimen patient advised to adhere to a low sodium diet, encouraged about medication compliance, counseled about weight loss. f/u 4 months Assessment & Plan (12/25/2022 9:28 AM EDT): Pt is here for a f/u visit He is on d Hctz/lisinopril 25/10 1 tab po daily. Most recent electrolytes, Bun and Creatinine done on: 12/10/2022 were within normal limits. Plan: Continue current regimen patient advised to adhere to a low sodium diet, encouraged about medication compliance, counseled about weight loss. f/u 4 months Class 2 severe obesity due t o excess calories with serious comorbidity and body mass index (BMI) of 36.0 to 36.9 in adult 09/03/2017 Assessment & Plan (06/28/2024 10:54 AM EDT): Patient has been counseled and educated about diet and exercise. Personal goal of weight loss discussedPatient has comorbidity of: HTN Assessment & Plan (12/25/2022 9:30 AM EDT): Patient has been counseled and educated about diet and exercise. Personal goal of weight loss discussedPatient has comorbidity of: HTN Resolved Problems Problem Noted Date Diagnosed Date Resolved Date Decreased visual acuity 06/28/202410/01 Assessment & Plan (06/28/2024 11:16 AM EDT): Will refer to [facility] program Encounters Date Type Department Care Team Description 02/02/2025 11:00 AM EDT Office Visit [facility] [address] [place] [phone] Germán Menendez MD Essential hypertension (Primary Dx); BRBPR (bright red blood per rectum); Symptom of blood in stool; Seasonal allergies 02/02/2025 Travel 02/01/2025 Telephone [facility] [address] [place] [phone] Germán Menendez MD 01/26/2025 Patient Outreach [facility] [address] [place] [address] Germán Menendez MD Pre-visit Planning (SDOH was already completed) 01/18/2025 5:00 PM EDT Office Visit [facility] [address], [place] [phone] Tracy Dyson NP Symptom of blood in stool (Primary Dx) from Last 3 Months Immunizations Immunization Administration Dates Next Due Tdap 12/07/2020,09/03/2017 Social History Tobacco Use Types Packs/Day Years Used Date Smoking Tobacco: Never Passive Smoke Exposure: Never Smokeless Tobacco: Never Tobacco Cessation:Counseling Given: Not Answered Alcohol Answer Date Recorded How often do you have a drink containing alcohol ? 2 06/28/2024 How many drinks containing a lcohol do you have on a typical day when you are drinking? 2 06/28/2024 How often do you have six or more drinks on one occasion? 1 06/28/2024 Depression Answer Date Recorded Patient Health Questionnaire-9 Score 2 06/28/2024 Patient Health Questionnaire-9 Score 2 06/28/2024 Last PHQ-9: Questionnaire Data Not on file 1 Housing Stability Answer Date Recorded What is your housing situation today? I have mayo cobian 06/28/[address] you li ve. Do you have problems with any of the following? None of the above 06/28/2024 Food Insecurity Answer Date Recorded Within the past 12 months, y ou worried that your food would run out before you got money to buy more: Never True 06/28/2024 Within the past 12 months,th e food you bought just didn't last and you didn't have enough money to get more: Never True Transportation Answer Date Recorded In the past 12 months, has l ack of transportation kept you from medical appts, meetings, work or from getting things needed for daily living? No 06/28/2024 Utilities Answer Date Recorded In the past 12 months, has t he electric, gas, oil or water company threatened to shut off services in your home? No 06/28/2024 Depression Answer Date Recorded Patient Health Questionnaire-2 Score 0 06/28/2024 Internet Access Answer Date Recorded Internet Access Q1 Yes 06/28/2024 Internet Access Q2 Not on file 06/28/2024 Sex and Gender Information Value Date Recorded Sex Assigned at Male 06/30/2022 10:15 AM EDT Legal Sex Male 10:15 AM EDT Gender Identity Male 06/30/2022 10:15 AM EDT Sexual Orientation Choose not to disclose 2021 10:15 AM EDT Last Filed Vital Signs Vital Sign Reading Time Taken Comments Blood Pressure 138/88 02/02/2025 11:16 AM EDT Pulse 80 02/02/2025 10:48 AM EDT Temperature 36.5 ??C (97.7 ??F) 02/02/2025 10:48 AM E DT Respiratory Rate 20 02/02/2025 10:48 AM EDT Oxygen Saturation 99% 02/02/2025 10:48 AM EDT Inhaled Oxygen Concentration - - Weight 104 kg (230 lb) 02/02/2025 10:48 AM EDT Height 167.6 cm (5' 6 ) 02/02/2025 10:48 AM EDT Body Mass Index 37.12 02/02/2025 10:48 AM EDT Plan of Treatment Health Maintenance Due Date Last Done Comments CT Colonography 1975 Colonoscopy 1975 FIT 1975 Sigmoidoscopy 1975 Family Planning (PISQ) 1990 Hepatitis B Vaccines (1 of 3 - 19+ 3-dose series) 1994 COVID-19 Vaccine (2023-2 5 season) 2024 Influenza Vaccine (Season Ended) 2025 Alcohol/Substance Use Screening 06/28/2025 06/28/2024 Depression Screening 06/28/2025 06/28/2024, 06/28/2024 SDOH Screening 10/03/2025 10/03/2024 Zoster Vaccines (1 of 2) 2025 FOBT 01/18/2026 01/18/2025 Disability Screening 02/02/2026 02/02/2025 Tobacco Screening 02/02/2026 02/02/2025 Colorectal Cancer Screening 08/09/2027 FIT DNA/Cologuard 08/09/2027 08/09/2024 Lipid Panel 07/13/2029 07/13/2024, 06/26/2020 DTaP/Tdap/Td Vaccines (3 - T d or Tdap) 12/07/2030 12/07/2020, 09/03/2017 RSV Patients and Patients Aged 60 years or older (1 - 1-dose 75+ series) 2050 HIV Screening Completed 09/22/2019 Hepatitis C Screening Completed 09/22/2019 HIB Vaccines Aged Out No longer eligi ble based on patient's age to complete this topic HPV Vaccines Aged Out No longer eligi ble based on patient's age to complete this topic Hepatitis A Vaccines Aged Out No long er eligible based on patient's age to complete this topic IPV Vaccines Aged Out No longer eligi ble based on patient's age to complete this topic Meningococcal B Vaccine Aged Out No l onger eligible based on patient's age to complete this topic Meningococcal Vaccine Aged Out No katia henry eligible based on patient's age to complete this topic Pneumococcal Vaccine: Pediatrics (0 to 5 Years) and At-Risk Patients (6 to 49) Years) Aged Out No longer eligible b ased on patient's age to complete this topic RSV under 20 months Aged Out No longe r eligible based on patient's age to complete this topic Rotavirus Vaccines Aged Out No longer eligible based on patient's age to complete this topic Procedures Procedure Name Priority Date/Time Associated Diagnosis Comments CBC WITH AUTO DIFFERENTIAL Routine 02/02/2025 11:40 AM EDT Symptom of blood in stool POCT OCCULT BLOOD BY PEROXID,FECES,1-3 NON CA SCREEN Routine 01/18/2025 5:55 PM EDT Symptom of blood in stool LAB COLOGUARD?? COLON CANCER SCREEN Routine 08/09/2024 7:00 AM EST Screening for colon cancer LIPID PANEL, STANDARD Routine 07/13/2024 10:25 AM EST Essential hypertension ZZZ HISTORICAL HEPATITIS C ANTIBODY RFLX Routine 09/22/2019 8:35 AM EST ZZZ HISTORICAL HIV AB/AG Routine 09/22/2019 8:35 AM EST from Last 3 Months or Most Recently Relevant to Health Maintenance Results * (ABNORMAL) CBC auto differential (02/02/2025 11:40 AM EDT) White Blood Count 5.1 4.8 - 10.8 X10*3/uL [facility] Red Blood Count 4.87 4.60 - 5.80 X10*6/uL [facility] Hemoglobin 14.5 14.0 - 18.0 g/dl [facility] Hematocrit 42.2 42.0 - 52.0 % [facility] Mean Corpuscular Volume 86.7 80.0 - 98.0 fL [facility] Mean Corpuscular Hemoglobin 29.8 27.0 - 33.0 pg [facility] Mean Corpuscular HGB Conc 34.4 31.0 - 36.0 g/dl [facility] Red Cell Distribution Width 12.4 11.0 - 16.0 % [facility] Platelet Count 202 160 - 400 X10*3/uL [facility] Mean Platelet Volume 11.3 9.4 - 12.4 fL [facility] Neutrophils Percent Auto 45.0 45 - 73 % [facility] Imm Gran Pct Auto 0.2 0.0 - 0.4 % [facility] Lymphocytes Percent Auto 38.3 20 - 40 % [facility] Monocytes Percent Auto 11.4(H) 2 - 11 % [facility] Eosinophils Percent Auto 4.3(H) 0 - 4 % [facility] Basophils Percent Auto 0.8 0 - 2 % [facility] NRBC Pct Auto 0.0 0.0 - 0.2 /100WBC [facility] Neutrophils Absolute Auto 2.3 2.0 - 8.3 x10*3/uL [facility] Imm Gran Abs Auto 0.01 0.00 - 0.03 X10*3/uL [facility] Lymphocytes Absolute Auto 1.9 1.2 - 4.9 X10*3/uL [facility] Monocytes Absolute Auto 0.6 0.1 - 1.2 X10*3/uL [facility] Eosinophils Absolute Auto 0.2 0.0 - 0.4 X10*3/uL [facility] Basophils Absolute Auto 0.0 0.0 - 0.2 X10*3/uL [facility] NRBC Abs Auto 0.000 0.0 - 0.012 X10*3/uL [facility] Blood Venous blood specimen / Unknown 02/02/2025 11:40 AM EDT 02/02/2025 1:43 PM EDT us Tracy Dyson HEDIS COORDINATOR LAB BLOOD ORDERABLES Final Resu lt [facility] [address] [place] [phone] [phone] * POCT Occult Blood by Peroxid, Feces, 1-3 Non CA Screen (01/18/2025 5:55 PM EDT) Fecal Occult Blood 1 Positive Stool 01/18/2025 5:55 PM EDT Tracy Dyson NP POINT OF CARE TEST ENTER/EDIT O RDERABLES Final Result * Cologuard?? colon cancer screening (08/09/2024 7:00 AM EST) Cologuard Result Negative Negative 08/18/20 5:25 AM EST [facility] (CLIA #:[id number]) Comment: NEGATIVE TEST RESULT. A negative Cologuard result indicates a low likelihood that a colorectal cancer (CRC) or advanced adenoma (adenomatous polyps with more advanced pre-malignant features) ??is present. The chance that a person with a negative Cologuard test has a colorectal cancer is less than 1 in 1500 (negative predictive value >99.9%) or has an ??advanced adenoma is less than ??5.3% (negative predictive value 94.7%). These data are based on a prospective cross-sectional study of 10,000 individuals at average risk for colorectal cancer who were screened with both Cologuard and colonoscopy. (Ankur Moser et al, N Engl J Med 2014;370(14):1286- 1297) The normal value (reference range) for this assay is negative. COLOGUARD RE-SCREENING RECOMMENDATION: Periodic colorectal cancer screening is an important part of preventive healthcare for asymptomatic individuals at average risk for colorectal cancer. ??Following a negative Cologuard result, the [place] [employer] Society and U.S. Multi-Society Task Force screening guidelines recommend a Cologuard re-screening interval of 3 years. References: [place] [employer] Guideline for Colorectal Cancer Screening: https://www.cancer.org/cancer/vfhyf-qmwpor-oowubr/gpeeciptw-coxuhpsqd-yyqhpbt/ac s-rec ommendations.html.; Leif CARIAS Cecelia CR, Gregory FranklinK, Colorectal Cancer Screening: Recommendations for Physicians and Patients from the U.S. Multi-Society Task Force on Colorectal Cancer Screening , Am J Gastroenterology 2017; 112:3991-2711. TEST DESCRIPTION: Composite algorithmic analysis of stool DNA-biomarkers with hemoglobin immunoassay. ?? Quantitative values of individual biomarkers are not reportable and are not associated with individual biomarker result reference ranges. Cologuard is intended for colorectal cancer screening of adults of either sex, 45 years or older, who are at average-risk for colorectal cancer (CRC). Cologuard has been approved for use by the U.S. FDA. The performance of Cologuard was established in a cross sectional study of average-risk adults aged 50-84. Cologuard performance in patients ages 45 to 49 years was estimated by sub-group analysis of near-age groups. Colonoscopies performed for a positive result may find as the most clinically significant lesion: colorectal cancer [4.0%], advanced adenoma (including sessile serrated polyps greater than or equal to 1cm diameter) [20%] or non- advanced adenoma [31%]; or no colorectal neoplasia [45%]. These estimates are derived from a prospective cross-sectional screening study of 10,000 individuals at average risk for colorectal cancer who were screened with both Cologuard and colonoscopy. (Ankur Goins al, N Engl J Med 2014;370(14):5931-5112.) Cologuard may produce a false negative or false positive result (no colorectal cancer or precancerous polyp present at colonoscopy follow up). A negative Cologuard test result does not guarantee the absence of CRC or advanced adenoma (pre-cancer). The current Cologuard screening interval is every 3 years. ([place] [employer] and U.S. Multi-Society Task Force). Cologuard performance data in a 10,000 patient pivotal study using colonoscopy as the reference method can be accessed at the following location: [email or web address]/results. Additional description of the Cologuard test process, warnings and precautions can be found at www.[email or web address].[email or web address]. Stool specimen (specimen) 08/09/2024 7:00 AM EST 08/10/2024 1:21 PM EST Germán Peterson MD LAB MOLECULAR DIAGNOS TICS ORDERABLES Final Result [facility] (CLIA #:[id number]) [address] [place] [address], [place] [phone] * (ABNORMAL) Lipid Panel, Standard (07/13/2024 10:25 AM EST) Triglycerides 85 <150 mg/dL [facility] Comment:Desirable Triglyceri de: less than 150 mg/dLBorderline High Triglyceride 150-199 mg/dLHigh Triglyceride: 200-499 mg/dLVery High Triglyceride: greater than or equal to 5OO mg/dL Cholesterol 198 <200 mg/dL [facility] Comment:Desirable Cholestero l: less than 200 mg/dLBorderline High Cholesterol: 200-239 mg/dLHigh Cholesterol: greater than 239 mg/dL LDL Cholesterol Calculated 146(H) <100 mg/dL [facility] Comment:Desirable LDL: less than 100 mg/dLNear Optimal/Above Optimal LDL: 110- 129 mg/dLBorderline High LDL: 130-159 mg/dLHigh LDL: 160-189 mg/dLVery High LDL: greater than or equal to 190 mg/dL HDL Cholesterol 35(L) >40 mg/dL [facility] Comment:Desirable HDL: great er than 40 mg/dL Note: This HDL assay may give artificially low results in patients with liver disease. Blood Venous blood specimen / Unknown 07/13/2024 10:25 AM EST 07/13/2024 1:27 PM EST Germán Peterson MD LAB BLOOD ORDERABLES Final Result [facility] [address] [place] [phone] * HEPATITIS C ANTIBODY RFLX (09/22/2019 8:35 AM EST) HEPATITIS C ANTIBODY NONREACTIVE NONREACTIVE [facility] Comment: Antibodies to HCV not detected; does not exclude early acute HCV infection. 09/22/2019 8:35 AM EST Germán Peterson MD HISTORICAL/NON ORDERA BLE LABS Final Result Performing Organization Address [facility] de Phone Number [facility] [address] * HIV AB/AG (09/22/2019 8:35 AM EST) Pathologist [facility] HIV AG/AB NONREACTIVE [facility] Comment: HIV-1 p24 Ag and/or HIV-1/HIV-2 Ab not detected. ?? A test result that is nonreactive does not exclude the possibility of exposure to or infection with HIV-1 and/or HIV-2. Nonreactive results in this assay for individuals with prior exposure to HIV-1 and/or HIV-2 may be due to antigen and antibody levels that are below the limit of detection of this assay. ?? The [employer] HIV Ag/Ab Combo assay result and supplemental assay results should be interpreted in conjunction with the patient's clinical presentation, history and other laboratory results. ??If the results are inconsistent with clinical evidence, additional testing is suggested to confirm the result. 09/22/2019 8:35 AM EST Germán Peterson MD HISTORICAL/NON ORDERA BLE LABS Final Result Performing Organization Address [facility] Phone Number [facility] [address] from Last 3 Months or Most Recently Relevant to Health Maintenance Insurance [facility] 3 Care Teams Press Operator Helper Relationship Specialty Start Date End Date Germán Menendez MD [address] [place] [phone] PCP - General Internal Medicine 07/03/14
[2025-02-02 14:05] LABS: Alanine Aminotransferase 44 U/L (0-40); Albumin Level 4.2 g/dL (3.5-5.0); Alkaline Phosphatase 58 U/L (39-117); Anion Gap 10 (12-20); Aspartate Amino Transferase 33 U/L (5-37); Bilirubin Total 0.9 mg/dL (0.0-1.0); Blood Urea Nitrogen 12 mg/dL (9-16); Calcium 9.5 mg/dL (8.4-10.2); Carbon Dioxide 30 mmol/L (22-29); Chloride 105 mmol/L (96-108); Estimated Glomerular Filt Rate > 60; Glucose Random 88 mg/dL (60-115); Potassium 3.9 mmol/L (3.3-5.1); Sodium 141 mmol/L (135-145); Total Protein 7.5 g/dL (6.5-8.0)
== END 2025-02-02 11:39 | disposition home or self-care (01) ==
LOC: HO.HHCL 11:38
PROVIDERS: Nurse Practitioner; Visit Provider Internal Medicine
DX: K92.1 Melena (principal)
CPT/HCPCS: 36415; 80053; 85025; 85610